=== PATIENT | male | born 1965 | race Caucasian/White ===

== ENCOUNTER 2023-10-23 08:38 | Day surgery (SDC) | payer OTHER, BC ==
[2023-10-19 10:03] VITALS: BMI 25.1
[2023-10-23] MEDS ORDERED: LIDOCAINE HCL/PF 2% SDV 5ML VIAL ONE (10:09)
[2023-10-23] MEDS ORDERED: PROPOFOL 60 ML ONE (10:10)
[2023-10-23 11:35] VITALS: RESP 16; TEMP 96.8
[2023-10-23 11:44] VITALS: BP 119/70; PULSE 84
== END 2023-10-23 11:10 | disposition home or self-care (01) ==
LOC: FASU-ENDO 08:38
PROVIDERS: ATTEND Internal Medicine Gastroenterology
PROC: 0DBL8ZX Excision of Transverse Colon, Via Natural or Artificial Opening Endoscopic, Diagnostic (ICD-10-PCS; principal; 2023-10-23 10:08)
DX: Z12.11 Encounter for screening for malignant neoplasm of colon (principal); K63.5 Polyp of colon; K64.1 Second degree hemorrhoids; K64.8 Other hemorrhoids; Z86.010 Personal history of colon polyps
CPT/HCPCS: 88305-TC